=== PATIENT | female | born 1990 | race Caucasian/White ===

== ENCOUNTER 2019-07-08 13:54 | Emergency (ER) | payer SELFPAY ==
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
[2019-07-08 15:04] LABS: Urine Blood NEGATIVE (NEG); Urine Glucose NEGATIVE (NEG); Urine Protein 2+ (NEG); Urine pH 5.5 (5.0-7.0)
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
[2019-07-08] MEDS ORDERED: IBUPROFEN 200 MG TAB PO ONE (15:17)
[2019-07-08] MEDS ORDERED: DIAZEPAM 5 MG TABLET ONE (15:17)
[2019-07-08 15:29] VITALS: BP 135/91; TEMP 98.8; O2SAT 100
== END 2019-07-08 15:24 | disposition home or self-care (01) ==
LOC: ER 13:54
DX: S60.221A Contusion of right hand, initial encounter (principal); S16.1XXA Strain of muscle, fascia and tendon at neck level, initial encounter; M25.552 Pain in left hip; V43.52XA Car driver injured in collision with other type car in traffic accident, initial encounter; Y93.89 Activity, other specified; Y92.410 Unspecified street and highway as the place of occurrence of the external cause
CPT/HCPCS: 72040; 81003; 81025; 99283